=== PATIENT | female | born 1930 | race Caucasian/White ===

== ENCOUNTER 2017-07-19 20:59 | Emergency (ER) | payer OTHER ==
[~2017-07-19] VITALS: Ht 152.4 cm; Wt 79.4 kg
[~2017-07-19 20:59] MED LIST: ALBU90OI; ALBU90OI61 INH; ALEN10; AZIT500 PO; BENZ100A PO; Bactrim Ds Tab1 EACH PO; Benadryl 50 mg50 MG PO; CEFA500ER; CEFA500ER PO; CEPH250A PO; CEPH500 PO; FLUT44OIA; FOSI10; Flovent Disku250 MCG INH; GLYB1.5; HYDACE5 PO; LEVOTHYROXINE 25 MCG; LOSHYD; MOMENI; MONT10T; MONTELUKAST SOD10 MG PO; NAPR250; NEBI5 PO; OLME40 PO; Pepcid20 MG PO; Prednisone20 MG PO; Simvastatin40 MG PO; TOCO400; TRAM50 PO
[2017-07-19] MEDS ORDERED: ASPI81CH PO (21:44)
[2017-07-19] MEDS ORDERED: BUME1 PO (21:46)
[2017-07-19] MEDS ORDERED: LOSA25 PO (21:47)
[2017-07-19] MEDS ORDERED: TRAM50 PO (22:26)
[2017-07-19] MEDS ORDERED: LIDO700A20 TOP (22:26)
== END 2017-07-19 23:25 | disposition home or self-care (01) ==
LOC: ER 20:59
DX: S20.212A Contusion of left front wall of thorax, initial encounter (principal); E11.9 Type 2 diabetes mellitus without complications; J44.9 Chronic obstructive pulmonary disease, unspecified; I10 Essential (primary) hypertension; Z88.8 Allergy status to other drugs, medicaments and biological substances; Z88.0 Allergy status to penicillin; Z88.5 Allergy status to narcotic agent; Z79.899 Other long term (current) drug therapy; Z79.52 Long term (current) use of systemic steroids; F17.200 Nicotine dependence, unspecified, uncomplicated; W01.10XA Fall on same level from slipping, tripping and stumbling with subsequent striking against unspecified object, initial encounter
CPT/HCPCS: 71046; 93005; 93010; 99283

== ENCOUNTER → 2018-02-23 | Outpatient (CLI) | payer OTHER ==
[~2018-02-23] MED LIST changes: +ASPI81CH PO; +BUME1 PO; +LIDO700A20 TOP; +LOSA25 PO
== END ==
LOC: LAB SHORT 19:10 → LAB EV 19:10
DX: N39.0 Urinary tract infection, site not specified (principal)
CPT/HCPCS: 87077; 87086; 87186

== ENCOUNTER 2018-04-27 07:10 | Emergency (ER) | payer OTHER ==
[~2018-04-27] VITALS: Ht 162.6 cm; Wt 69.8 kg
[2018-04-27 08:07] LABS: BASOPHILS ABSOLUTE AUTO 0.03 K/mm3 (0.00-0.23); BASOPHILS PERCENT AUTO 1 % (0-2); EOSINOPHILS ABSOLUTE AUTO 0.05 K/mm3 (0.00-0.68); EOSINOPHILS PERCENT AUTO 1 % (0-6); Hematocrit 40.4 % (33.0-51.0); Hemoglobin 12.6 g/dL (11.5-16.0); IMMATURE GRAN ABSOLUTE AUTO 0.03 K/mm3 (0.00-0.10); IMMATURE GRAN PERCENT AUTO 1 % (0-1); LYMPHOCYTES ABSOLUTE AUTO 0.92 K/mm3 (0.84-5.20); LYMPHOCYTES PERCENT AUTO 16 % (21-46); MONOCYTES ABSOLUTE AUTO 0.49 K/mm3 (0.16-1.47); MONOCYTES PERCENT AUTO 8 % (4-13); Mean Corpuscular HGB 27.6 pg (26.0-34.0); Mean Corpuscular HGB Conc 31.2 g/dL (31.5-36.5); Mean Corpuscular Volume 89 fL (80-100); NEUTROPHILS ABSOLUTE AUTO 4.28 K/mm3 (1.96-9.15); NEUTROPHILS PERCENT AUTO 74 % (41-73); RDW Coefficient Variation 14.5 % (11.7-14.2); RDW Standard Deviation 46.8 fL (35.1-46.3); Red Blood Cell Count 4.56 M/mm3 (3.80-5.20)
[2018-04-27 08:09] LABS: Mean Platelet Volume 11.6 fL (9.1-12.4); Platelet Count 97 K/mm3 (150-400)
[2018-04-27 08:23] LABS: Alanine Aminotransfer (ALT/SGP 15 U/L (12-78); Albumin, Blood 3.4 g/dL (3.4-5.0); Alk Phos 48 U/L (50-136); Anion Gap 6 mmol/L (6-16); Aspartate Aminotrans (AST/SGOT 12 U/L (12-37); Bilirubin, Total 0.4 mg/dL (0.1-1.0); Blood Urea Nitrogen 20 mg/dL (8-24); Bun/Creatinine Ratio 30.9 (12.0-20.0); CO2, Blood 28 mmol/L (21-32); Calcium, Blood 9.1 mg/dL (8.5-10.1); Chloride, Blood 105 mmol/L (98-108); Creatinine, Blood 0.65 mg/dL (0.40-1.00); Globulin, Blood 3.5 g/dL (2.2-4.0); Glomerular Filtration Rate >60 (60-); Glucose, Blood 130 mg/dL (70-99); Potassium, Blood 3.9 mmol/L (3.5-5.5); Sodium, Blood 139 mmol/L (136-145); Total Protein, Blood 6.9 g/dL (6.4-8.2)
[2018-04-27] MEDS ORDERED: HYDR1TAB94 PO (10:31)
--- NOTE | 2018-04-27 10:34 | NUR ---
Initial Visit: Palliative Consult for goals of care. Pt is A&O and denies pain at this time. Daughters Adis and Ying present during visit. Significant brusing on Pt's left forehead noted. Daughter Adis reports the Pt fell, hit her head and lost conciousness for a few moments. She reports the Pt was independent at home until Jan then started showing signs of decline. Pt and daughters report they are aware of Pt's condition and would like to go home and decide plan of care to pursue. They are aware of hospice being an option for Pt. Ying is presently caring for Pt and Pt's grand daughter will be caring for her as well. All 3 are certified caregivers. Pt appears to have adequate support at home. Tracy also reports establishing with oncologists at cancer center with diagnostic testing started. Spoke with Dr smith and he reports Pt also has a midline shift along with her cancer. He would like palliative care to discuss hospice with Pt and family. Spoke with Otilia RODRIGUEZ for EFM. She will contact Dr Collier and report that we will be available to accompany him with his visit. Plan is to remain available and address concerns and symptoms as they occur. If Pt is D/C to go home, recommend prescriptions to maintain comfort until family makes a decision. Recommend further education with Pt and family on prognosis and options as needed.
== END 2018-04-27 11:56 | disposition home or self-care (01) ==
LOC: ER 07:10
PROVIDERS: Emergency Medicine
DX: S01.81XA Laceration without foreign body of other part of head, initial encounter (principal); S51.011A Laceration without foreign body of right elbow, initial encounter; W18.30XA Fall on same level, unspecified, initial encounter; Z88.8 Allergy status to other drugs, medicaments and biological substances; Z88.0 Allergy status to penicillin; Z88.5 Allergy status to narcotic agent; E11.9 Type 2 diabetes mellitus without complications; J45.909 Unspecified asthma, uncomplicated; I10 Essential (primary) hypertension; Z87.891 Personal history of nicotine dependence
CPT/HCPCS: 70450; 71045; 72125; 80053; 85025; 99284-25

== ENCOUNTER 2018-05-18 08:30 | Day surgery (SDC) | payer OTHER ==
[~2018-05-18 08:30] MED LIST changes: +HYDR1TAB94 PO
[2018-05-18] MEDS ORDERED: DEXA4 PO (17:58)
[2018-05-18] MEDS ORDERED: ALBU90OI61 INH (17:59)
[2018-05-18] MEDS ORDERED: HYDR1TAB94 PO (18:00)
[2018-05-18] MEDS ORDERED: ALBU2.5V5 NEB (18:00)
[2018-05-18] MEDS ORDERED: MONT10T PO (18:01)
[2018-05-18] MEDS ORDERED: SIMV40 PO (18:01)
[2018-05-18] MEDS ORDERED: AMLO10 PO (18:01)
[2018-05-18] MEDS ORDERED: LOSA50 PO (18:02)
[2018-05-18] MEDS ORDERED: Advair Hfa 230-12 GM PO (18:02)
[2018-05-18] MEDS ORDERED: NEBI10 PO (18:03)
[2018-05-18] MEDS ORDERED: BENZ100A PO (22:07)
[2018-05-22 14:51] LABS: Performing Lab SYMBIODX
[2018-05-31 13:20] LABS: Result Path tech chrg only
== END 2018-05-18 23:07 | disposition home or self-care (01) ==
LOC: MOI MRI 08:30 → US 11:00 → MOI MRI 23:07
PROVIDERS: Internal Medicine Hematology & Oncology
DX: C79.31 Secondary malignant neoplasm of brain (principal); C77.1 Secondary and unspecified malignant neoplasm of intrathoracic lymph nodes; C77.3 Secondary and unspecified malignant neoplasm of axilla and upper limb lymph nodes; R47.1 Dysarthria and anarthria; G81.90 Hemiplegia, unspecified affecting unspecified side
CPT/HCPCS: 38505; 70553; 76942; 88305; 88313; 88341; 88342; A9577

== ENCOUNTER 2018-05-18 15:46 | Emergency (ER) | payer OTHER ==
[~2018-05-18] VITALS: Ht 149.9 cm; Wt 69.8 kg
[2018-05-18 16:25] LABS: BASOPHILS ABSOLUTE AUTO 0.03 K/mm3 (0.00-0.23); BASOPHILS PERCENT AUTO 0 % (0-2); EOSINOPHILS PERCENT AUTO 0 % (0-6); Hematocrit 43.7 % (33.0-51.0); Hemoglobin 13.7 g/dL (11.5-16.0); IMMATURE GRAN ABSOLUTE AUTO 0.29 K/mm3 (0.00-0.10); IMMATURE GRAN PERCENT AUTO 2 % (0-1); LYMPHOCYTES ABSOLUTE AUTO 0.86 K/mm3 (0.84-5.20); LYMPHOCYTES PERCENT AUTO 4 % (21-46); MONOCYTES ABSOLUTE AUTO 0.85 K/mm3 (0.16-1.47); MONOCYTES PERCENT AUTO 4 % (4-13); Mean Corpuscular HGB 27.2 pg (26.0-34.0); Mean Corpuscular HGB Conc 31.4 g/dL (31.5-36.5); Mean Corpuscular Volume 87 fL (80-100); Mean Platelet Volume 10.9 fL (9.1-12.4); NEUTROPHILS ABSOLUTE AUTO 17.61 K/mm3 (1.96-9.15); NEUTROPHILS PERCENT AUTO 90 % (41-73); Platelet Count 222 K/mm3 (150-400); RDW Coefficient Variation 14.5 % (11.7-14.2); RDW Standard Deviation 46.2 fL (35.1-46.3); Red Blood Cell Count 5.03 M/mm3 (3.80-5.20); White Blood Cell Count 19.64 K/mm3 (4.00-11.30)
[2018-05-18 16:44] LABS: Alanine Aminotransfer (ALT/SGP 50 U/L (12-78); Albumin, Blood 3.2 g/dL (3.4-5.0); Alk Phos 71 U/L (50-136); Anion Gap 7 mmol/L (6-16); Aspartate Aminotrans (AST/SGOT 19 U/L (12-37); Bilirubin, Total 0.5 mg/dL (0.1-1.0); Blood Urea Nitrogen 37 mg/dL (8-24); Bun/Creatinine Ratio 64.8 (12.0-20.0); CO2, Blood 29 mmol/L (21-32); Calcium, Blood 8.4 mg/dL (8.5-10.1); Chloride, Blood 99 mmol/L (98-108); Creatinine, Blood 0.57 mg/dL (0.40-1.00); Globulin, Blood 3.3 g/dL (2.2-4.0); Glomerular Filtration Rate >60 (60-); Glucose, Blood 390 mg/dL (70-99); Potassium, Blood 4.7 mmol/L (3.5-5.5); Sodium, Blood 135 mmol/L (136-145); Total Protein, Blood 6.5 g/dL (6.4-8.2); Troponin I 0.042 ng/mL (0.000-0.040)
[2018-05-18] MEDS ORDERED: DEXA4 PO (17:58)
[2018-05-18] MEDS ORDERED: ALBU90OI61 INH (17:59)
[2018-05-18] MEDS ORDERED: HYDR1TAB94 PO (18:00)
[2018-05-18] MEDS ORDERED: ALBU2.5V5 NEB (18:00)
[2018-05-18] MEDS ORDERED: SIMV40 PO (18:01)
[2018-05-18] MEDS ORDERED: AMLO10 PO (18:01)
[2018-05-18] MEDS ORDERED: MONT10T PO (18:01)
[2018-05-18] MEDS ORDERED: LOSA50 PO (18:02)
[2018-05-18] MEDS ORDERED: Advair Hfa 230-12 GM PO (18:02)
[2018-05-18] MEDS ORDERED: NEBI10 PO (18:03)
[2018-05-18] MEDS ORDERED: BENZ100A PO (22:07)
== END 2018-05-18 22:33 | disposition home or self-care (01) ==
LOC: ER 15:46
PROVIDERS: Physician Assistant
DX: J90 Pleural effusion, not elsewhere classified (principal); E11.65 Type 2 diabetes mellitus with hyperglycemia; M79.89 Other specified soft tissue disorders; E07.9 Disorder of thyroid, unspecified; R05 Cough; R60.0 Localized edema; D72.829 Elevated white blood cell count, unspecified; J45.909 Unspecified asthma, uncomplicated; I10 Essential (primary) hypertension; Z87.891 Personal history of nicotine dependence; Z88.0 Allergy status to penicillin; Z88.5 Allergy status to narcotic agent; Z88.6 Allergy status to analgesic agent; Z88.8 Allergy status to other drugs, medicaments and biological substances; Z79.899 Other long term (current) drug therapy
CPT/HCPCS: 36415; 71046; 71260; 80053; 83880; 84484; 85025; 93005; 93010; 93971; 96360; 96361; 99284-25; J7030; Q9967

== ENCOUNTER 2018-05-25 18:08 | Inpatient (IN) | payer OTHER ==
[~2018-05-25] VITALS: Ht 152.4 cm; Wt 73.8 kg
[~2018-05-25 18:08] MED LIST changes: +ALBU2.5V5 NEB; +AMLO10 PO; +Advair Hfa 230-12 GM PO; +DEXA4 PO; +LOSA50 PO; +MONT10T PO; +NEBI10 PO; +SIMV40 PO
[2018-05-25 19:22] LABS: BASOPHILS ABSOLUTE AUTO 0.04 K/mm3 (0.00-0.23); BASOPHILS PERCENT AUTO 0 % (0-2); EOSINOPHILS PERCENT AUTO 0 % (0-6); Hematocrit 46.3 % (33.0-51.0); Hemoglobin 14.7 g/dL (11.5-16.0); IMMATURE GRAN ABSOLUTE AUTO 0.07 K/mm3 (0.00-0.10); IMMATURE GRAN PERCENT AUTO 0 % (0-1); LYMPHOCYTES ABSOLUTE AUTO 1.16 K/mm3 (0.84-5.20); LYMPHOCYTES PERCENT AUTO 7 % (21-46); MONOCYTES ABSOLUTE AUTO 0.29 K/mm3 (0.16-1.47); MONOCYTES PERCENT AUTO 2 % (4-13); Mean Corpuscular HGB 27.6 pg (26.0-34.0); Mean Corpuscular HGB Conc 31.7 g/dL (31.5-36.5); Mean Corpuscular Volume 87 fL (80-100); Mean Platelet Volume 11.6 fL (9.1-12.4); NEUTROPHILS ABSOLUTE AUTO 15.87 K/mm3 (1.96-9.15); NEUTROPHILS PERCENT AUTO 91 % (41-73); Platelet Count 150 K/mm3 (150-400); RDW Coefficient Variation 14.4 % (11.7-14.2); RDW Standard Deviation 45.7 fL (35.1-46.3); Red Blood Cell Count 5.32 M/mm3 (3.80-5.20); White Blood Cell Count 17.43 K/mm3 (4.00-11.30)
[2018-05-25 19:37] LABS: International Normalized Ratio 1.07; Prothrombin Time Results 11.3 Sec (9.7-11.5)
[2018-05-25 19:38] LABS: Alanine Aminotransfer (ALT/SGP 36 U/L (12-78); Albumin, Blood 2.3 g/dL (3.4-5.0); Albumin/Globulin Ratio 0.7 (0.8-1.8); Alk Phos 77 U/L (50-136); Anion Gap 10 mmol/L (6-16); Aspartate Aminotrans (AST/SGOT 14 U/L (12-37); Bilirubin, Total 0.7 mg/dL (0.1-1.0); Blood Urea Nitrogen 41 mg/dL (8-24); CO2, Blood 24 mmol/L (21-32); Calcium, Blood 8.4 mg/dL (8.5-10.1); Chloride, Blood 93 mmol/L (98-108); Creatinine, Blood 0.71 mg/dL (0.40-1.00); Globulin, Blood 3.4 g/dL (2.2-4.0); Glomerular Filtration Rate >60 (60-); Glucose, Blood 760 mg/dL (70-99); Potassium, Blood 4.9 mmol/L (3.5-5.5); Sodium, Blood 127 mmol/L (136-145); Total Protein, Blood 5.7 g/dL (6.4-8.2)
[2018-05-25] MEDS ORDERED: SIMV40 PO (21:39)
[2018-05-25] MEDS ORDERED: NEBI10 PO (21:40)
[2018-05-25] MEDS ORDERED: AMLO10 PO (21:40)
[2018-05-25] MEDS ORDERED: DECADRON4 MG PO (21:40)
[2018-05-25] MEDS ORDERED: VIT1CAPS12 PO (21:40)
[2018-05-25] MEDS ORDERED: CENTRUM SILVER1 EAC3 PO (21:41)
[2018-05-25] MEDS ORDERED: ASPI81CH PO (21:41)
[2018-05-25 22:29] LABS: PCO2 Arterial 38.4 mmHg (35-45); PO2 Arterial 55.8 mmHg (80-100); pH Blood Arterial 7.42 (7.35-7.45)
[2018-05-25 23:22] LABS: Glucose, Blood 547 mg/dL (70-99)
[2018-05-26 03:40] LABS: Hematocrit 37.5 % (33.0-51.0); Hemoglobin 12.2 g/dL (11.5-16.0); Mean Corpuscular HGB 27.8 pg (26.0-34.0); Mean Corpuscular HGB Conc 32.5 g/dL (31.5-36.5); Mean Corpuscular Volume 85 fL (80-100); Mean Platelet Volume 10.6 fL (9.1-12.4); NRBC ABSOLUTE 0.02 K/mm3 (0.00-0.02); NRBC Auto 0.1 /100 WBC (0.0-0.2); Platelet Count 103 K/mm3 (150-400); RDW Coefficient Variation 14.1 % (11.7-14.2); RDW Standard Deviation 44.1 fL (35.1-46.3); Red Blood Cell Count 4.39 M/mm3 (3.80-5.20); White Blood Cell Count 15.71 K/mm3 (4.00-11.30)
[2018-05-26 04:21] LABS: Alanine Aminotransfer (ALT/SGP 56 U/L (12-78); Albumin, Blood 1.7 g/dL (3.4-5.0); Albumin/Globulin Ratio 0.6 (0.8-1.8); Alk Phos 54 U/L (50-136); Anion Gap 7 mmol/L (6-16); Aspartate Aminotrans (AST/SGOT 34 U/L (12-37); Bilirubin, Total 0.5 mg/dL (0.1-1.0); Blood Urea Nitrogen 47 mg/dL (8-24); Bun/Creatinine Ratio 54.7 (12.0-20.0); CO2, Blood 27 mmol/L (21-32); Calcium, Blood 7.8 mg/dL (8.5-10.1); Chloride, Blood 102 mmol/L (98-108); Creatinine, Blood 0.86 mg/dL (0.40-1.00); Glomerular Filtration Rate >60 (60-); Glucose, Blood 195 mg/dL (70-99); Potassium, Blood 4.6 mmol/L (3.5-5.5); Sodium, Blood 136 mmol/L (136-145); Total Protein, Blood 4.7 g/dL (6.4-8.2)
[2018-05-26 09:50] LABS: Source, Urine Clean Catch
[2018-05-26 09:57] LABS: Bilirubin, Urine Neg (Neg); Blood, Urine 5+ (Neg); Glucose Qualitative, Urine 3+ (Neg); Ketones, Urine 1+ (Neg); Leukocyte Esterase, Urine 3+ (Neg); Nitrite, Urine Neg (Neg); Protein, Urine 2+ (Neg); Urobilinogen, Urine NORM (Normal)
[2018-05-26 09:59] LABS: Appearance, Urine Cloudy (Clear); Color, Urine Yellow (P-Yellow)
[2018-05-26 10:05] LABS: Bacteria Many /hpf; Red Blood Cells, Urine TNTC /hpf (0-2); Squamous Epithelial Cells Many /hpf (Few); White Blood Cells, Urine TNTC /hpf (0-5)
[2018-05-26 10:08] LABS: Yeast/Fungi Urine Many /hpf
[2018-05-26 10:09] LABS: Transitional Epithelial Cells Few /hpf (0-Rare)
[2018-05-27 04:53] LABS: BASOPHILS PERCENT AUTO 0 % (0-2); EOSINOPHILS PERCENT AUTO 0 % (0-6); Hematocrit 34.2 % (33.0-51.0); Hemoglobin 11.1 g/dL (11.5-16.0); IMMATURE GRAN ABSOLUTE AUTO 0.06 K/mm3 (0.00-0.10); IMMATURE GRAN PERCENT AUTO 1 % (0-1); LYMPHOCYTES PERCENT AUTO 6 % (21-46); MONOCYTES ABSOLUTE AUTO 0.18 K/mm3 (0.16-1.47); MONOCYTES PERCENT AUTO 2 % (4-13); Mean Corpuscular HGB 28.1 pg (26.0-34.0); Mean Corpuscular HGB Conc 32.5 g/dL (31.5-36.5); Mean Corpuscular Volume 87 fL (80-100); Mean Platelet Volume 11.2 fL (9.1-12.4); NEUTROPHILS ABSOLUTE AUTO 8.31 K/mm3 (1.96-9.15); NEUTROPHILS PERCENT AUTO 92 % (41-73); Platelet Count 78 K/mm3 (150-400); RDW Coefficient Variation 14.6 % (11.7-14.2); RDW Standard Deviation 46.6 fL (35.1-46.3); Red Blood Cell Count 3.95 M/mm3 (3.80-5.20); White Blood Cell Count 9.05 K/mm3 (4.00-11.30)
[2018-05-27 05:10] LABS: Alanine Aminotransfer (ALT/SGP 106 U/L (12-78); Albumin, Blood 1.5 g/dL (3.4-5.0); Albumin/Globulin Ratio 0.4 (0.8-1.8); Alk Phos 59 U/L (50-136); Anion Gap 7 mmol/L (6-16); Aspartate Aminotrans (AST/SGOT 43 U/L (12-37); Bilirubin, Total 0.4 mg/dL (0.1-1.0); Blood Urea Nitrogen 35 mg/dL (8-24); Bun/Creatinine Ratio 65.1 (12.0-20.0); CO2, Blood 26 mmol/L (21-32); Calcium, Blood 8.3 mg/dL (8.5-10.1); Chloride, Blood 105 mmol/L (98-108); Creatinine, Blood 0.54 mg/dL (0.40-1.00); Globulin, Blood 3.5 g/dL (2.2-4.0); Glomerular Filtration Rate >60 (60-); Glucose, Blood 252 mg/dL (70-99); Potassium, Blood 4.4 mmol/L (3.5-5.5); Sodium, Blood 138 mmol/L (136-145)
== END 2018-06-02 01:25 | DRG 871 ==
LOC: ER 18:08 → ICUW 21:12 → MEDS 21:12 → ICUE 21:12 → MEDS 05-28 15:23 → ENPENDDIS 06-01 02:23 → MEDS 06-02 01:25
PROVIDERS: Emergency Medicine; Internal Medicine; ADMIT Internal Medicine
PROC: 02HV33Z Insertion of Infusion Device into Superior Vena Cava, Percutaneous Approach (ICD-10-PCS; principal; 2018-05-26)
PROC: 3E053XZ Introduction of Vasopressor into Peripheral Artery, Percutaneous Approach (ICD-10-PCS; 2018-05-26)
DX: A40.3 Sepsis due to Streptococcus pneumoniae (principal); J96.21 Acute and chronic respiratory failure with hypoxia; G93.41 Metabolic encephalopathy; R65.21 Severe sepsis with septic shock; C79.31 Secondary malignant neoplasm of brain; J44.0 Chronic obstructive pulmonary disease with (acute) lower respiratory infection; J91.0 Malignant pleural effusion; R04.2 Hemoptysis; C34.90 Malignant neoplasm of unspecified part of unspecified bronchus or lung; C79.89 Secondary malignant neoplasm of other specified sites; N39.0 Urinary tract infection, site not specified; E87.1 Hypo-osmolality and hyponatremia; Z51.5 Encounter for palliative care; E03.9 Hypothyroidism, unspecified; I10 Essential (primary) hypertension; I48.91 Unspecified atrial fibrillation; B95.3 Streptococcus pneumoniae as the cause of diseases classified elsewhere; J43.9 Emphysema, unspecified; Z87.891 Personal history of nicotine dependence; E11.65 Type 2 diabetes mellitus with hyperglycemia; E88.09 Other disorders of plasma-protein metabolism, not elsewhere classified; B37.9 Candidiasis, unspecified
CPT/HCPCS: 36415; 36556; 36600; 51703; 71045; 71046; 80053; 81001; 82803; 82945; 82947; 83605; 83615; 83880; 84145; 84157; 84484; 85025; 85027; 85610; 87040; 87070; 87086; 87186; 87205; 88108; 88305; 89051; 93005; 93010; 94640; 94660; 96361; 96365; 96375; 99285-25; C1751; J0696; J1100; J1450; J1815; J1956; J2060; J2270; J2930; J3010; J3370; J7030; J7040; J7050; J7060; J7120